=== PATIENT | female | born 1965 | race Caucasian/White ===

== ENCOUNTER → 2023-08-03 | Outpatient (REF) | LOC: M LAB 11:05 | PROVIDERS: ATTEND Nurse Practitioner Adult Health | DX: Z00.00 Encounter for general adult medical examination without abnormal findings (principal) ==

== ENCOUNTER 2023-08-29 11:10 | Emergency (ER) | payer MEDICARE, OTHER ==
[~2023-08-29] VITALS: Ht 170.2 cm; Wt 73.7 kg
[2023-08-29] MEDS ORDERED: METO1TAB87 (11:25)
[2023-08-29] MEDS ORDERED: MESA1.2T (11:25)
[2023-08-29] MEDS ORDERED: ALBU8.5H (11:25)
[2023-08-29] MEDS ORDERED: ESTR1TAB9 (11:25)
[2023-08-29] MEDS ORDERED: CELE0.09 (11:25)
[2023-08-29] MEDS ORDERED: ESZO1TAB6 (11:25)
[2023-08-29] MEDS ORDERED: CYCL-707 (11:25)
[2023-08-29] MEDS ORDERED: KETOROLAC TROMETHAMINE 10 MG TAB PO ONE (12:25)
[2023-08-29 12:36] VITALS: BP 129/73; TEMP 97.7; O2SAT 99
== END 2023-08-29 12:38 | disposition home or self-care (01) ==
LOC: M ED 11:10
DX: M25.512 Pain in left shoulder (principal); W01.0XXA Fall on same level from slipping, tripping and stumbling without subsequent striking against object, initial encounter; I10 Essential (primary) hypertension; Z88.2 Allergy status to sulfonamides; Z91.012 Allergy to eggs; Y92.009 Unspecified place in unspecified non-institutional (private) residence as the place of occurrence of the external cause; Y93.89 Activity, other specified; Y99.9 Unspecified external cause status; Z79.52 Long term (current) use of systemic steroids; Z79.83 Long term (current) use of bisphosphonates; Z79.899 Other long term (current) drug therapy

== ENCOUNTER → 2023-09-26 | Outpatient (REF) ==
[~2023-09-26] MED LIST: ALBU8.5H; CELE0.09; CYCL-707; ESTR1TAB9; ESZO1TAB6; MESA1.2T; METO1TAB87
== END ==
LOC: M EMP 10:48
PROVIDERS: ATTEND Family Medicine
DX: Z11.52 Encounter for screening for COVID-19 (principal)

== ENCOUNTER → 2024-06-12 | Outpatient (REF) | LOC: M EMP 07:28 | PROVIDERS: ATTEND Family Medicine | DX: Z11.52 Encounter for screening for COVID-19 (principal) ==

== ENCOUNTER → 2024-06-12 | Outpatient (REF) | LOC: M EMP 07:26 | PROVIDERS: ATTEND Family Medicine | DX: Z11.52 Encounter for screening for COVID-19 (principal) ==

== ENCOUNTER → 2025-08-01 | Outpatient (CLI) | payer BC ==
[2025-08-01 14:37] LABS: TESTOSTERONE 9.0 NG/DL (14-76)
[2025-08-01 14:38] LABS: ESTRADIOL 41.6 PG/ML
== END ==
LOC: M PLALAB 12:20
PROVIDERS: ATTEND Advanced Practice Midwife
DX: N95.1 Menopausal and female climacteric states (principal)

== ENCOUNTER → 2025-08-21 | Outpatient (CLI) | payer BC | LOC: M WHC 15:53 | PROVIDERS: ATTEND Advanced Practice Midwife | DX: Z12.31 Encounter for screening mammogram for malignant neoplasm of breast (principal); Z53.9 Procedure and treatment not carried out, unspecified reason ==